=== PATIENT | male | born 1980 | race Caucasian/White ===

== ENCOUNTER 2019-06-06 19:22 | Emergency (ER) | payer OTHER ==
[~2019-06-06] VITALS: Ht 172.7 cm; Wt 57.6 kg
--- NOTE | 2019-06-06 19:39 | NUR ---
PT BIBSELF FOR L SIDED RIB PAIN X 1 DAY; PT AAOX4, -SOB, NAD NOTED, VSS, PENDING MD ALFONSO
[2019-06-06 20:11] LABS: BASOPHILS % (AUTO) 0.4 % (0.0-2.0); EOSINOPHILS % (AUTO) 0.9 % (0.0-6.0); HEMATOCRIT 50 % (39-51); HEMOGLOBIN 16.8 g/dL (13.5-17.5); LYMPHOCYTES % (AUTO) 25.1 % (20.0-44.0); MEAN CORPUSCULAR HGB CONC 34 g/dl (31.0-36.0); MEAN CORPUSCULAR VOLUME 87 fL (80-96); MONOCYTES # (AUTO) 1.1 /CMM (0.1-1.30); MONOCYTES % (AUTO) 9.3 % (2.0-12.0); NEUTROPHILS # (AUTO) 7.7 /CMM (1.8-8.9); NEUTROPHILS % (AUTO) 64.3 % (43.0-81.0); PLATELET COUNT (AUTO) 212 /CMM (150-450); RED BLOOD CELL COUNT(AUTO) 5.72 MIL/uL (4.5-6.0)
[2019-06-06 20:17] LABS: CALCIUM, SERUM 9.1 mg/dL (8.5-10.1); POTASSIUM 4.2 mmol/L (3.5-5.1)
[2019-06-06] MEDS ORDERED: CT SWABBABLE VALVE TRANS SET 1 EA INFUS.SET MC ONE (20:29)
[2019-06-06] MEDS ORDERED: IOHEXOL-300 100 ML VIAL IV ONE (20:29)
[2019-06-06] MEDS ORDERED: IV NS 0.9% 250 ML IV ONE (20:29)
[2019-06-06 21:41] VITALS: BP 132/80
--- NOTE | 2019-06-06 21:42 | NUR ---
Patient discharged to home in stable condition. Written and verbal after care instructions given. Patient verbalizes understanding of instruction.IV removed. Catheter intact and site benign. Pressure and 4x4 applied to site. No bleeding noted.
== END 2019-06-06 21:43 | disposition home or self-care (01) ==
LOC: ER 19:30
DX: S20.212A Contusion of left front wall of thorax, initial encounter (principal); R07.89 Other chest pain; F17.200 Nicotine dependence, unspecified, uncomplicated; Z98.890 Other specified postprocedural states; W22.8XXA Striking against or struck by other objects, initial encounter; Y93.71 Activity, boxing; Y92.89 Other specified places as the place of occurrence of the external cause; Y99.8 Other external cause status
CPT/HCPCS: 36415; 71250; 74177; 80048; 85025; 99284; J7050; Q9967